=== PATIENT | male | born 1965 | race American Indian/Alaskan Native ===

== ENCOUNTER 2019-06-20 17:08 | Emergency (ER) | payer OTHER ==
[2019-06-20 17:26] LABS: Basophils # (Auto) 0.1 K/mm3 (0.0-0.1); Basophils % (Auto) 1.1 % (0.0-1.8); Eosinophils # (Auto) 0.2 K/mm3 (0.0-0.4); Hematocrit 39.3 % (35.5-45.6); Hemoglobin 13.3 gm/dl (11.8-15.2); Lymphocytes # (Auto) 1.3 K/mm3 (1.2-5.4); Lymphocytes % (Auto) 25.6 % (13.4-35.0); Mean Corpuscular HGB Conc 34 % (32-34); Mean Corpuscular Volume 89 fl (84-94); Monocytes # (Auto) 0.3 K/mm3 (0.0-0.8); Monocytes % (Auto) 5.7 % (0.0-7.3); Platelet Count 237 K/mm3 (140-440); Red Blood Count 4.41 M/mm3 (3.65-5.03); Red Cell Distribution Width 15.2 % (13.2-15.2)
[2019-06-20 17:38] LABS: INR 1.05 (0.87-1.13)
[2019-06-20 17:39] LABS: Partial Thromboplastin Time 31.6 Sec. (24.2-36.6)
[2019-06-20 17:48] LABS: BUN/Creatinine Ratio 12; Blood Urea Nitrogen 17 mg/dL (9-20); Calcium 9.4 mg/dL (8.4-10.2); Hemolysis Index 8
--- NOTE | 2019-06-20 17:52 | Event Note ---
ED Screening Note Date of service: 06/20/19 Time: 17:48 ED Screening Note: 54 y o male presents with right arm weakness and numbness x 1 week This initial assessment/diagnostic orders/clinical plan/treatment(s) is/are subject to change based on patients health status, clinical progression and re- assessment by fellow clinical providers in the ED. Further treatment and workup at subsequent clinical providers discretion. Patient/guardian urged not to elope from the ED as their condition may be serious if not clinically assessed and managed. Initial orders include:
--- NOTE | 2019-06-20 18:15 | Cat Scan Report ---
CT BRAIN: 06/20/2019 INDICATION / CLINICAL INFORMATION: neuro deficits <6hrs or sx present upon awakening. COMPARISON: None available. FINDINGS: BRAIN/INTRACRANIAL STRUCTURES: Unenhanced CT images of the brain demonstrate no evidence of acute int racranial abnormality. Ventricles and sulci are normal in size and shape. There is no evidence of acute ischemic injury, hemorrhage, or mass. There are no abnormal extra-axial fluid collections. EXTRACRANIAL STRUCTURES: Unremarkable. IMPRESSION: Negative unenhanced CT of the brain. All CT scans at this location are performed using dose reduction to ALARA by means of automated expos ure control. Signer Name: Jose Cronin MD Signed: 06/20/2019 6:11 PM Workstation Name: [id number]
[2019-06-20] MEDS ORDERED: APRESOLINE IV ONE ×2 (20:13→21:04)
--- NOTE | 2019-06-20 20:15 | Emergency Department Report ---
HPI - General Chief Complaint: Neuro Symptoms/Deficit Time Seen by Provider: 06/20/19 17:47 - HPI HPI: 54-year-old male presents to the emergency department with complaint of some tingling to the right arm, from the shoulder down to the fi ngers, that has been going on intermittently over the past few weeks. At first, he says that this would occur for about 2 minutes at a time, but more recently it is now going on for about 4-5 minutes. He denies any headache, vision change, slurred speech, motor deficits. The patient also presents with very elevated blood pressure. He does have a history of hypertension but has not been on any medication since they moved to [place]. He does not have a primary care physician. He is an occasional cigar smoker. He has not taken anything for his symptoms prior to presentation. ED Past Medical Hx - Past Medical History Previous Medical History?: Yes Hx Hypertension: Yes - Surgical History Past Surgical History?: No - Social History Smoking Status: Current Some Day Smoker Substance Use Type: None - Medications Home Medications: Home Medications Medication Instructions Recorded Confirmed Last Taken Type Blood Pressure Test Kit-Large 1 [facility] PRN #1 kit 06/20/19 Unknown Rx [Blood Pressure Monitor] amLODIPine [Norvasc] 10 mg PO DAILY #30 tab 06/20/19 Unknown Rx ED Review of Systems ROS: Stated complaint: POSS STROKE/RT SIDE NUMB Other details as noted in HPI Comment: All other systems reviewed and negative Constitutional: denies: chills, fever Eyes: denies: eye pain, vision change ENT: denies: ear pain, throat pain Respiratory: denies: cough, shortness of breath Cardiovascular: denies: chest pain, palpitations Gastrointestinal: denies: abdominal pain, vomiting Genitourinary: denies: dysuria, discharge Musculoskeletal: denies: back pain, arthralgia Skin: denies: rash, lesions Neurological: paresthesias. denies: headache, weakness, numbness Physical Exam - Physical Exam Vital Signs: Vital Signs 06/20/19 06/20/19 17:14 20:00 Temperature 98.2 F 98.3 F Pulse Rate 79 71 Respiratory 18 16 Rate Blood Pressure 206/123 Blood Pressure 202/116 206/123 [Left] O2 Sat by Pulse 98 99 Oximetry Physical Exam: GENERAL: The patient is well-developed well-nourished. HENT: Normocephalic. Atraumatic. Patient has moist mucous membranes. EYES: Extraocular motions are intact. Pupils equal reactive to light bilaterally. No nystagmus. NECK: Supple. Trachea is midline. CHEST/LUNGS: Clear to auscultation. There is no respiratory distress noted. HEART/CARDIOVASCULAR: Regular. There is no tachycardia. There is no murmur. ABDOMEN: Abdomen is soft, nontender. Patient has normal bowel sounds. There is no abdominal distention. SKIN: Skin is warm and dry. NEURO: The patient is awake, alert, and oriented. The patient is cooperative. The patient has no focal neurologic deficits. Normal speech. Cranial nerves II through XII grossly intact. No facial asymmetry. No pronator drift. No dysmetria. MUSCULOSKELETAL: There is no tenderness or deformity. There is no limitation range of motion. There is no evidence of acute injury. ED Course Vital Signs 06/20/19 06/20/19 17:14 20:00 Temperature 98.2 F 98.3 F Pulse Rate 79 71 Respiratory 18 16 Rate Blood Pressure 206/123 Blood Pressure 202/116 206/123 [Left] O2 Sat by Pulse 98 99 Oximetry ED Medical Decision Making - Lab Data Result diagrams: 06/20/19 17:16 06/20/19 17:16 - EKG Data -: EKG Interpreted by [facility] EKG shows normal: sinus rhythm, axis, intervals, QRS complexes, ST-T waves (T wave inversions to lateral leads) Rate: normal - EKG Data When compared to previous EKG there are: previous EKG unavailable Interpretation: other (sinus, t wave inversions to lateral leads) - Radiology Data Radiology results: report reviewed CT BRAIN: 06/20/2019 INDICATION / CLINICAL INFORMATION: neuro deficits <6hrs or sx present upon awakening. COMPARISON: None available. FINDINGS: BRAIN/INTRACRANIAL STRUCTURES: Unenhanced CT images of the brain demonstrate no evidence of acute intracranial abnormality. Ventricles and sulci are normal in size and shape. There is no evidence of acute ischemic injury, hemorrhage, or mass. There are no abnormal extra-axial fluid collections. EXTRACRANIAL STRUCTURES: Unremarkable. IMPRESSION: Negative unenhanced CT of the brain. - Medical Decision Making This patient presents to the emergency department with complaint of what sounds like paresthesias occurring to the right upper extremity. This been going on for the past 2 weeks but worsened or became more consistent in the past day or so. On examination the patient does not appear to have any focal, motor or sen luke deficits and his cranial nerves are intact. He is neurovascularly intact as well to the affected right upper extremity. A CT scan of the head was done that does not show any bleed, shift, mass, ischemia, or any other acute process. His labs have been unremarkable including CBC, metabolic panel, troponin, TSH. EKG shows some lateral T-wave inversions but otherwise no morphology consistent with STEMI or dysrhythmia. Patient did present with some elevated blood pressure but is not compliant with his blood pressure medications. He was given some hydralazine and it came down to a more reasonable level. Patient has no complaints of any chest pain, shortness of breath. The patient will be started on amlodipine. We also discussed some dietary and/or lifestyle changes to make. He will get a blood pressure cuff and keep a blood pressure log. Patient was seen ambulatory in the emergency department and both appears and feels stable. For all these reasons, he appears safe for discharge home at this time. He has been given a referral for primary care. He will return to the ER with any worsening of his symptoms or any acute distress. - Differential Diagnosis CVA, TIA, Dysrythmia, Electrolyte abnormalities Critical Care Time: No Critical care attestation.: If time is entered above; I have spent that time in minutes in the direct care of this critically ill patient, excluding procedure time. ED Disposition Clinical Impression: Paresthesias Hypertension Qualifiers: Hypertension type: essential hypertension Qualified Code(s): I10 - Essential (primary) hypertension Disposition: DC-01 TO HOME OR SELFCARE Is pt being admited?: No Condition: Stable Instructions: Paresthesia (ED), Hypertension (ED) Additional Instructions: Please follow up with a primary care physician in the next few days. Return to the emergency Department with any worsening of your symptoms or any acute distress. Please try and stay away from foods that are high in salt and caffeinated products to help with her blood pressure. Keep a blood pressure log. I'm starting her on a blood pressure medication called Norvasc/amlodipine that is taken once per day, usually in the morning. I am giving you a referral for multiple primary care physicians and clinics in the area. Prescriptions: Blood Pressure Test Kit-Large [Blood Pressure Monitor] 1 each [facility] PRN #1 kit amLODIPine [Norvasc] 10 mg PO DAILY #30 tab Referrals: PRIMARY CARE, [Primary Care Provider] - 3-5 Days IAM DOMINGO MD [Staff Physician] - 3-5 Days VINCE WALKER MD [Staff Physician] - 3-5 Days [facility] [Outside] - 3-5 Days Time of Disposition: 21:40 - Assessment Assessment Interval: Baseline - Level of Consciousness 1a. Level of Consciousness: alert/keenly responsive - LOC Questions 1b. LOC Questions: answers both correctly - LOC Command 1c. LOC Commands: performs tasks correctly - Best Gaze 2. Best Gaze: normal - Visual 3. Visual: no visual loss - Facial Palsy 4. Facial Palsy: normal symmetrical movement - Motor Arm 5a. Motor Arm Left: no drift 5b. Motor Arm Right: no drift - Motor Leg 6a. Motor Leg Left: no drift 6b. Motor Leg Right: no drift - Limb Ataxia 7. Limb Ataxia: absent - Sensory 8. Sensory: normal - Best Language 9. Best Language: no aphasia - Dysarthria 10. Dysarthria: normal - Extinction and Inattention 11. Extinction/Inattention: no abnormality - Scoring Total Score: 0 Stroke Severity: No Stroke Symptoms
[2019-06-20 21:20] VITALS: BP 158/106
== END 2019-06-20 21:55 | disposition home or self-care (01) ==
LOC: ED 17:08
DX: I10 Essential (primary) hypertension (principal); R20.2 Paresthesia of skin; F17.200 Nicotine dependence, unspecified, uncomplicated; Z79.899 Other long term (current) drug therapy
CPT/HCPCS: 36415; 70450; 80048; 83735; 84443; 84484; 85025; 85610; 85670; 85730; 93005; 93010; 96374; 99284; J0360

== ENCOUNTER 2021-12-23 11:23 | Emergency (ER) | payer MEDICAID, OTHER ==
[2021-12-23 11:31] VITALS: BP 185/109
[2021-12-23] MEDS ORDERED: IBUPROFEN 800 MG TAB PO ONE (12:01)
--- NOTE | 2021-12-23 12:27 | XRay Report ---
Right knee-3 views INDICATION: right knee pain. COMPARISON: None available. IMPRESSION: No acute osseous abnormality. Normal alignment. No significant DJD. Soft tissues are u nremarkable. Signer Name: Hang Magaña MD Signed: 12/23/2021 12:23 PM Workstation Name: [id number]
--- NOTE | 2021-12-23 13:12 | Emergency Department Report ---
ED Lower Extremity HPI - General Chief Complaint: Extremity Problem,Nontraumatic Stated Complaint: RT KNEE PROBLEM Time Seen by Provider: 12/23/21 11:32 Source: patient Mode of arrival: Ambulatory Limitations: No Limitations - History of Present Illness Initial Comments: This is a 56-year-old male nontoxic, well nourished in appearance, no acute signs of distress presents to the ED with c/o of right knee pain 1 week. Patient stated that he has been working a lot in [employer] which consist of walking and standing. Patient denies any injuries or trauma. Patient denies any numbness, tingling, fever, chills, nausea, vomiting, chest pain, shortness of breath, headache, stiff neck. Patient denies any joint swelling or joint redness. Patient denies decreased range of motion or abnormal gait. Patient denies any allergies or significant past medical history. MD Complaint: knee injury Injury: Knee: Left Severity: mild Severity scale (0 -10): 3 Improves With: immobilization Worsens With: movement, palpation Associated Symptoms: ambulatory. denies: snap/pop sensation, swelling, numbness, tingling, unable to bear weight, able to partially bear weight - Related Data Previous Rx's Medication Instructions Recorded Last Taken Type Blood Pressure Test Kit-[facility] PRN #1 kit 06/20/19 Unknown Rx [Blood Pressure Monitor] amLODIPine 10 mg PO DAILY #30 tab 06/20/19 Unknown Rx Naproxen 500 mg PO Q8H PRN #12 tab 12/23/21 Unknown Rx Allergies Allergy/AdvReac Type Severity Reaction Status Date / Time No Known Allergies Allergy Unverified 06/20/19 17:11 ED Review of Systems ROS: Stated complaint: RT KNEE PROBLEM Other details as noted in HPI Comment: All other systems reviewed and negative Constitutional: denies: chills, fever Eyes: denies: eye pain, eye discharge, vision change ENT: denies: ear pain, throat pain Respiratory: denies: cough, shortness of breath, wheezing Cardiovascular: denies: chest pain, palpitations Endocrine: no symptoms reported Gastrointestinal: denies: abdominal pain, nausea, diarrhea Genitourinary: denies: urgency, dysuria Musculoskeletal: denies: back pain, joint swelling, arthralgia Skin: denies: rash, lesions Neurological: denies: headache, weakness, paresthesias Psychiatric: denies: anxiety, depression Hematological/Lymphatic: denies: easy bleeding, easy bruising ED Past Medical Hx - Past Medical History Hx Hypertension: Yes - Social History Smoking Status: Current Some Day Smoker Substance Use Type: None - Medications Home Medications: Home Medications Medication Instructions Recorded Confirmed Last Taken Type Blood Pressure Test Kit-Large 1 each PRN #1 kit 06/20/19 Unknown Rx [Blood Pressure Monitor] amLODIPine 10 mg PO DAILY #30 tab 06/20/19 Unknown Rx Naproxen 500 mg PO Q8H PRN #12 tab 12/23/21 Unknown Rx ED Physical Exam - General Limitations: No Limitations General appearance: alert, in no apparent distress - Head Head exam: Present: atraumatic, normocephalic - Eye Eye exam: Present: normal appearance - Neck Neck exam: Present: full ROM. Absent: lymphadenopathy - Respiratory Respiratory exam: Absent: respiratory distress - Cardiovascular Cardiovascular Exam: Present: regular rate - Extremities Exam Extremities exam: Present: normal inspection, full ROM, tenderness, normal capillary refill. Absent: pedal edema, joint swelling, calf tenderness - Expanded Lower Extremity Exam Right Hip exam: Present: normal inspection, full ROM. Absent: tenderness, swelling Upper Leg exam: Present: normal inspection, full ROM. Absent: tenderness, swelling Knee exam: Present: normal inspection, full ROM, tenderness, full knee extension. Absent: swelling, abrasion, laceration, ecchymosis, deformity, crepidus, dislocation, erythema, effusion, pain w/ pronation/supination, posterior draw sign, pain/laxity with valgus, pain/laxity with varus Lower Leg exam: Present: normal inspection, full ROM. Absent: tenderness, swelling, abrasion, laceration, ecchymosis, deformity, crepidus, dislocation, erythema, palpable cord, Cristo's sign Ankle exam: Present: normal inspection, full ROM. Absent: tenderness, swelling Foot/Toe exam: Present: normal inspection, full ROM. Absent: tenderness, swelling Neuro vascular tendon exam: Present: no vascular compromise Gait: Positive: observed and normal - Back Exam Back exam: Present: full ROM - Neurological Exam Neurological exam: Present: alert, oriented X3, normal gait - Psychiatric Psychiatric exam: Present: normal affect, normal mood - Skin Skin exam: Present: warm, dry, intact, normal color. Absent: rash ED Course Vital Signs 03/13/22 11:30 Temperature 98.6 F Pulse Rate 70 Respiratory 18 Rate Blood Pressure 185/109 O2 Sat by Pulse 98 Oximetry - Reevaluation(s) Reevaluation #1: 12/23/21 13:10 Patient is speaking in full sentences with no signs of distress noted. ED Lower Extremity MDM - Radiology Data [facility] [address] [place] [address] XRay Report Signed Patient: ABEBA OKEEFE MR#: [id number] : 1965 Acct:[id number] Age/Sex: 56 / M ADM Date: 12/23/21 Loc: ED Attending Dr: Ordering Physician: TEE HERNANDEZ NP Date of Service: 12/23/21 Procedure(s): XR knee 3V RT Accession Number(s): [id number] cc: TEE HERNANDEZ NP Fluoro Time In Minutes: Right knee-3 views INDICATION: right knee pain. COMPARISON: None available. IMPRESSION: No acute osseous abnormality. Normal alignment. No significant DJD. Soft tissues are unremarkable. Signer Name: Hang Magaña MD Signed: 12/23/2021 12:23 PM Workstation Name: [id number] Transcribed By: SULEMA Dictated By: Hang Magaña MD Electronically Authenticated By: Hang Magaña MD Signed Date/Time: 12/23/21 1223 DD/ 122 TD/TT: - Medical Decision Making This is a 56-year-old male that presents with left knee injury. Patient is stable and was examined by me. I referred patient to an orthopedic doctor for further evaluation for possible MRI. X-ray has been obtained and dictated by the radiologist. Patient is notified of the x-ray report with noted by the patient. Patient does have normal gait with no tenderness and no joint swelling. No ecchymosis. no joint redness or swelling. Not warm to touch. No signs of cellulites present. Patient received a knee immobilize. Patient was instructed to RICE therapy. Patient received Motrin for pain. Patient is discharged with Naproxen. At time of discharge, the patient does not seem toxic or ill in appearance. No acute signs of distress noted. Patient agrees to discharge treatment plan of care. No further questions noted by the patient. Critical care attestation.: If time is entered above; I have spent that time in minutes in the direct care of this critically ill patient, excluding procedure time. ED Disposition Clinical Impression: Right knee injury Qualifiers: Encounter type: initial encounter Qualified Code(s): S89.91XA - Unspecified injury of right lower leg, initial encounter Disposition: HOME / SELF CARE / HOMELESS Is pt being admited?: No Does the pt Need Aspirin: No Condition: Stable Instructions: RICE Therapy for Routine Care of Injuries Additional Instructions: Follow-up with a orthopedic doctor in 3-5 days or if symptoms worsen and continue return to emergency room as soon as possible. No physical activity that extremity until cleared by orthopedic doctor Prescriptions: Naproxen 500 mg PO Q8H PRN #12 tab PRN Reason: Pain , Severe (7-10) Referrals: PRIMARY CAREMD [Referring] - 3-5 Days GERARD STEWARD MD [Staff Physician] - 3-5 Days Forms: Work/School Release Form(ED) Time of Disposition: 13:12
== END 2021-12-23 14:48 | disposition home or self-care (01) ==
LOC: ED 11:23
DX: S89.91XA Unspecified injury of right lower leg, initial encounter (principal); F17.200 Nicotine dependence, unspecified, uncomplicated; I10 Essential (primary) hypertension; X58.XXXA Exposure to other specified factors, initial encounter; Y93.89 Activity, other specified; Y92.89 Other specified places as the place of occurrence of the external cause; Y99.8 Other external cause status
CPT/HCPCS: 99283